=== PATIENT | female | born 2000 | race Caucasian/White ===

== ENCOUNTER 2021-06-16 22:45 | Emergency (ER) | payer OTHER ==
[~2021-06-16] VITALS: Ht 160 cm; Wt 47.6 kg
[2021-06-16 22:45] VITALS: BP 113/84
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
[2021-06-16] MEDS ORDERED: TDAP [DIPH/PERTUSSIS/TET] 0.5 ML VIAL IM ONE (23:52)
[2021-06-17] MEDS ORDERED: TDAP [DIPH/PERTUSSIS/TET] 0.5 ML VIAL IM ONE
--- NOTE | 2021-06-17 00:03 | NUR ---
URINE COLLECTED AND SENT TO LAB
--- NOTE | 2021-06-17 01:29 | NUR ---
PT TAKEN TO CT VIA [facility]
--- NOTE | 2021-06-17 04:15 | NUR ---
Patient discharged with [employer] in stable condition. Written and verbal after care instructions given.
== END 2021-06-17 04:15 ==
LOC: ER 22:56
DX: S00.83XA Contusion of other part of head, initial encounter (principal); S70.01XA Contusion of right hip, initial encounter; S60.211A Contusion of right wrist, initial encounter; S00.511A Abrasion of lip, initial encounter; Z88.8 Allergy status to other drugs, medicaments and biological substances; V49.69XA Unspecified car occupant injured in collision with other motor vehicles in traffic accident, initial encounter; Y93.89 Activity, other specified; Y92.413 State road as the place of occurrence of the external cause; Y99.8 Other external cause status
CPT/HCPCS: 70450; 70486; 72170; 73110; 84703; 99285; A6403; 90715